=== PATIENT | male | born 1970 | race Caucasian/White ===

== ENCOUNTER 2017-03-14 20:20 | Emergency (ER) | payer BC ==
[~2017-03-14 20:20] MED LIST: Acetaminophen/HYDROcodone 325-5 MG Tab PO ONE; Ciprofloxacin 500 MG Tab PO ONE
[2017-03-14 20:30] VITALS: BP 153/96
--- NOTE | 2017-03-14 21:51 | EDM.PDOC ---
ED HPI GENERAL MEDICAL PROBLEM - General Chief Complaint: Lower Extremity Injury/Pain Stated Complaint: right big toe injury Time Seen by Provider: 03/14/17 21:00 Source of Information: Reports: Patient, Family History Limitations: Reports: No Limitations - History of Present Illness INITIAL COMMENTS - FREE TEXT/NARRATIVE: Patient moving clothes dryer dropped clothes dryer on right great toe-wearing flip flops-sustained laceraion across the extire dorsal region of the right great toe. Denies any other injury. TDAP updated. Onset: Today Onset Date: 03/14/17 Onset Time: 20:15 Duration: Hour(s): (2) Location: Reports: Lower Extremity, Right Quality: Reports: Burning Severity: Mild Improves with: Reports: None Worsens with: Reports: None Associated Symptoms: Reports: No Other Symptoms Right 1-Hallux Pain Score (Numeric/FACES): 8 - Related Data Allergies Allergy/AdvReac Type Severity Reaction Status Date / Time aspirin Allergy Cannot Verified 03/14/17 20:35 Remember Penicillins Allergy Cannot Verified 03/14/17 20:35 Remember Home Meds: Home Meds . [No Known Home Meds] 03/14/17 [History] Past Medical History - Past Surgical History HEENT Surgical History: Reports: Tonsillectomy Social & Family History - Tobacco Use Smoking Status *Q: Never Smoker - Caffeine Use Caffeine Use: Reports: Coffee - Alcohol Use Alcohol Use History: No - Recreational Drug Use Recreational Drug Use: No - Living Situation & Occupation Living situation: Reports: , with Family Occupation: Employed Review of Systems - Review of Systems Review Of Systems: See Below Constitutional: Reports: No Symptoms Eyes: Reports: No Symptoms Ears: Reports: No Symptoms Nose: Reports: No Symptoms Mouth/Throat: Reports: No Symptoms Respiratory: Reports: No Symptoms Cardiovascular: Reports: No Symptoms GI/Abdominal: Reports: No Symptoms Genitourinary: Reports: No Symptoms Musculoskeletal: Reports: Foot Pain (Right Great toe) Skin: Reports: Wound (2 cm laceration right great toe with obvious deformity) Neurological: Reports: No Symptoms Psychiatric: Reports: No Symptoms ED EXAM, GENERAL - Physical Exam Exam: See Below Exam Limited By: No Limitations General Appearance: Alert, WD/WN, No Apparent Distress Ears: Normal External Exam Ear Exam: Bilateral Ear: Auricle Normal, Canal Normal Nose: Normal Inspection, Normal Mucosa, No Blood Throat/Mouth: Normal Inspection, Normal Lips Head: Atraumatic, Normocephalic Neck: Normal Inspection, Supple Respiratory/Chest: No Respiratory Distress Cardiovascular: Normal Peripheral Pulses, Regular Rate, Rhythm Peripheral Pulses: 3+: Dorsalis Pedis (L), Dorsalis Pedis (R) GI/Abdominal: Non-Tender (Male) Exam: Deferred Back Exam: Normal Inspection, Full Range of Motion Extremities: Limited Range of Motion (Right Great Toe Fracture and crush injury with laceration 2 cm dorsal region) Neurological: Alert, Oriented, Normal Cognition, Normal Reflexes, No Motor/ Sensory Deficits Psychiatric: Normal Affect, Normal Mood Skin Exam: Warm, Dry, Other (Laceration Right Great toe Open Fracture er xray) Lymphatic: No Adenopathy ED TRAUMA EXTREMITY PROCEDURES - Laceration/Wound Repair Right Toes Lac/wound length in cm: 2 Appearance: Mildly Contaminated, Other (Crush injury-) Distal NVT: Neuro & Vascular Intact, No Tendon Injury Anesthetic Type: Local Local Anesthesia - Lidocaine (Xylocaine): 2% Plain Local Anesthetic Volume: 5cc Skin Prep: Providone-Iodine (Betadine) Saline irrigation (cc's): 500 Exploration/Debridement/Repair: Wound Explored, Other (Attempted to remove nail as appears more blow out crush injury vs laceration-patient did not tolerate therefore copius irrigation with pressure dressing applied and coban. Podiatry shoe placed and refer to Dr. Mora in am.) Sterile Dressing Applied: Provider Tetanus Status Addressed: Other (UPDATED TDAP) - Splinting Right Lower Extremity Splint Site: Podiatry shoe Applied & Form Fitted By: Provider Course - Vital Signs Last Recorded V/S: Last Vital Signs Temp 37.2 C 03/14/17 20:21 Pulse 89 03/14/17 20:21 Resp 16 03/14/17 20:21 BP 153/96 H 03/14/17 20:21 Pulse Ox 95 03/14/17 20:21 - Orders/Labs/Meds Orders: Active Orders 24 hr Category Date Time Status Toes Great Toe Rt T5 [CR] Stat Exams 03/14/17 20:38 Taken Meds: Medications Discontinued Medications Generic Name Dose Route Start Last Admin Trade Name Freq PRN Reason Stop Dose Admin Hydrocodone Bitart/Acetaminophen Confirm 03/14/17 22:14 [place] 325-5 Mg Administered 03/14/17 22:15 Dose 1 tab .ROUTE .STK-MED ONE Lidocaine HCl Confirm 03/14/17 22:00 Xylocaine 2% Administered 03/14/17 22:01 Dose 20 ml .ROUTE .STK-MED ONE Departure - Departure Time of Disposition: 22:55 Disposition: Home, Self-Care 01 Clinical Impression: Open fracture dislocation of toe of right foot - Discharge Information Instructions: Crush Injury, Fingers or Toes, [id number] Forms: ED Department Discharge Additional Instructions: Dr. Mora in am for further evaluation and treatment - Problem List & Annotations (1) Open fracture dislocation of toe of right foot SNOMED Code(s): 731170345 Code(s): S92.911B - UNSP FRACTURE OF RIGHT TOE(S), INIT ENCNTR FOR OPEN FRACTURE Status: Acute Current Visit: Yes Qualifiers: Qualified Code(s): S92.911B - Unspecified fracture of right toe(s), initial encounter for open fracture - Problem List Review Problem List Initiated/Reviewed/Updated: Yes - My Orders Last 24 Hours: My Active Orders 03/14/17 20:38 Toes Great Toe Rt T5 [CR] Stat - Assessment/Plan Last 24 Hours: My Active Orders 03/14/17 20:38 Toes Great Toe Rt T5 [CR] Stat Assessment:: Open Fracture of Right Great Toe Plan: Phone consult [facility]-Advised by Dr. Perez referral to [facility]oped[facility] or [facility]patient preference [place]. Referral to [facility] Dr. Mora Podiatry who indicates treatment with anesthesia-irrigation and sutures if indicated. Update Tdap and discharge with Cipro 500 mg BID po take home pack and podiatry shoe. Will F/U with Dr. Mora in am for further definitive care. Prevent further injury. Ice Elevation NSAIDS for pain and discomfort.
[2017-03-14] MEDS ORDERED: Lidocaine 2% 20 ML MDV ONE (22:00)
[2017-03-14] MEDS ORDERED: Acetaminophen/HYDROcodone 325-5 MG Tab ONE (22:14)
[2017-03-14] MEDS ORDERED: Ciprofloxacin 500 MG Tab PO STA (22:25)
[2017-03-14] MEDS ORDERED: Acetaminophen/HYDROcodone 325-5 MG Tab PO ONE (22:25)
[2017-03-14] MEDS ORDERED: Diphtheria,Pertussis(Acell),Tetanus Vaccine 0.5 ML Syringe ONE (22:46)
[2017-03-14] MEDS ORDERED: Take Home: Ciprofloxacin 500 MG Tab, 2 Tab Pack PO ONE (22:57)
[2017-03-14] MEDS ORDERED: Take Home: Acetaminophen/HYDROcodone 325-5 MG, 2 Tab Pack PO ONE (22:58)
== END 2017-03-14 23:15 | disposition home or self-care (01) ==
LOC: CC.ED 20:20
DX: S92.421B Displaced fracture of distal phalanx of right great toe, initial encounter for open fracture (principal); S91.111A Laceration without foreign body of right great toe without damage to nail, initial encounter; Z88.0 Allergy status to penicillin; Z88.8 Allergy status to other drugs, medicaments and biological substances; Z98.890 Other specified postprocedural states; W20.8XXA Other cause of strike by thrown, projected or falling object, initial encounter
CPT/HCPCS: 12001; 73660; 90471; 90715; 99283; A9270